=== PATIENT | male | born 1965 | race Caucasian/White ===

== ENCOUNTER → 2017-03-12 | Outpatient (CLI) | payer BC | LOC: RAD 08:00 | DX: R07.81 Pleurodynia (principal) ==

== ENCOUNTER 2019-04-22 16:13 | Emergency (ER) | payer BC ==
[~2019-04-22] VITALS: Ht 188 cm; Wt 80.0 kg
[2019-04-22] MEDS ORDERED: NORVASC 10MG10 MG PO (16:31)
[2019-04-22] MEDS ORDERED: GLIMEPIRIDE4 MG PO (16:31)
[2019-04-22] MEDS ORDERED: PRAVASTATIN SOD40 MG PO (16:31)
[2019-04-22] MEDS ORDERED: LISINOPRIL40 MG (16:31)
[2019-04-22] MEDS ORDERED: HCTZ 25MG25 MG PO (16:32)
[2019-04-22] MEDS ORDERED: METFOMIN HYDRO850 MG PO (16:32)
[2019-04-22] MEDS ORDERED: CEPHALEXIN500 M1 PO (16:55)
[2019-04-22 17:19] VITALS: BP 135/63
== END 2019-04-22 17:20 | disposition home or self-care (01) ==
LOC: ED 16:13
DX: S81.812A Laceration without foreign body, left lower leg, initial encounter (principal); E11.9 Type 2 diabetes mellitus without complications; I10 Essential (primary) hypertension; Z23 Encounter for immunization; Z79.84 Long term (current) use of oral hypoglycemic drugs; W26.8XXA Contact with other sharp object(s), not elsewhere classified, initial encounter; Y92.009 Unspecified place in unspecified non-institutional (private) residence as the place of occurrence of the external cause
CPT/HCPCS: 90715